=== PATIENT | male | born 1960 | race Hispanic/Latino ===

== ENCOUNTER 2022-09-18 09:20 | Emergency (ER) | payer SELFPAY ==
[2022-09-18 09:53] LABS: Absolute Lymphocytes (CBC) 1.9 K/uL (0.7-4.9); Hematocrit 42.6 % (39.6-49.0); Lymphocytes % 31.7 % (15.3-44.8); MCV 89.3 fL (80-100); MPV 9.7 fL (7.6-11.3); Platelets 135 thou/uL (152-406); RBC Red Blood Cell Count 4.77 M/uL (4.33-5.43)
[2022-09-18] MEDS ORDERED: DIPHENHYDRAMINE 50 MG/ML VIAL ONE (09:56)
[2022-09-18] MEDS ORDERED: NA CHLORIDE 0.9% 1,000 ML ONE (09:57)
[2022-09-18] MEDS ORDERED: KETOROLAC 30 MG/ML INJ ONE (09:57)
[2022-09-18] MEDS ORDERED: METOCLOPRAMIDE 10 MG/2mL INJ ONE (09:58)
[2022-09-18 10:14] LABS: Potassium 3.8 mEq/L (3.5-5.1)
--- NOTE | 2022-09-18 10:19 | RAD REPORT ---
EXAM DESCRIPTION: CT - Head Brain Wo Cont - 09/18/2022 10:08 am CLINICAL HISTORY: Headache COMPARISON: none TECHNIQUE: Computed axial tomography of the head was obtained. Unenhanced and enhanced images obtain ed. 50 cc Isovue-[address] scans are performed using dose optimization technique as appropriate and may include automated exposure control or mA/KV adjustment according to patient size. FINDINGS: An intracranial bleed is not seen The ventricles are normal in caliber No extra-axial fluid collection is noted. No abnormal enhancement seen Fluid within the sinuses/ mastoids is not seen IMPRESSION: No acute intracranial abnormality is seen. If patient's symptoms persist MRI of the brain would be recommended
--- NOTE | 2022-09-18 11:55 | ER ---
Nurse's Notes [facility] Name: Joe Souza Age: 62 yrs Sex: Male : 1960 Arrival Date: 09/18/2022 Time: 09:20 Bed 7 Private MD: Diagnosis: Headache Presentation: 09/18 09:24 Chief complaint: Patient states: symptoms began 2 weeks ago with nausea, heartburn, and aa5 frontal headache. Pt reports heartburn and nausea has resolved but headache has persisted. Pt reports generalized weakness, states "yesterday I felt dizzy, like I was drunk". 09:24 Coronavirus screen: headache. Ebola Screen: Patient denies travel to an Ebola-affected [facility] area in the 21 days before illness onset. Initial Sepsis Screen: Does the patient meet any 2 criteria? No. Patient's initial sepsis screen is negative. Does the patient have a suspected source of infection? No. Patient's initial sepsis screen is negative. Risk Assessment: Do you want to hurt yourself or someone else? Patient reports no desire to harm self or others. Onset of symptoms was September 2022. 09:24 Acuity: CHERRY 3 aa5 09:24 Method Of Arrival: Ambulatory aa5 Historical: - Allergies: 09:24 No Known Allergies; aa5 - Home Meds: 09:24 None [Active]; aa5 - PMHx: 09:24 None; aa5 - PSHx: 09:24 Appendectomy; aa5 - Immunization history:: Adult Immunizations unknown. - Social history:: Smoking status: Patient denies any tobacco usage or history of. Screenin:30 [facility] ED Fall Risk Assessment (Adult) History of falling in the last 3 months, aa5 including since admission No falls in past 3 months (0 pts) Confusion or Disorientation No (0 pts) Intoxicated or Sedated No (0 pts) Impaired Gait No (0 pts) Mobility Assist Device Used No (0 pt) Altered Elimination No (0 pt) Score/Fall Risk Level 0 - 2 = Low Risk Oriented to surroundings, Maintained a safe environment, Educated pt \\T\\ family on fall prevention, incl call for assistance when getting out of bed. Abuse screen: Denies threats or abuse. Nutritional screening: No deficits noted. Tuberculosis screening: No symptoms or risk factors identified. Assessment: 09:24 General: Appears comfortable, Behavior is calm, cooperative. Pain: Complains of pain in aa5 forehead Pain currently is 5 out of 10 on a pain scale. Quality of pain is described as aching, throbbing, Pain began 2 weeks ago Is continuous. Neuro: Level of Consciousness is awake, alert, obeys commands, Oriented to person, place, time, situation, Tone Regulator are equal bilaterally Moves all extremities. Gait is steady, Speech is normal, Facial symmetry appears normal, Pupils are PERRLA, Reports headache frontal area, Currently denies dizziness. Cardiovascular: Heart tones S1 S2 present Rhythm is regular. Respiratory: Airway is patent Respiratory effort is even, unlabored, Respiratory pattern is regular, symmetrical, Breath sounds are clear bilaterally. GI: Abdomen is round non-distended, Bowel sounds present X 4 quads. Abd is soft and non tender X 4 quads. Patient currently denies diarrhea, nausea, vomiting. : No signs and/or symptoms were reported regarding the genitourinary system. EENT: No signs and/or symptoms were reported regarding the EENT system. Derm: Skin is pink, warm \\T\\ dry. Musculoskeletal: Range of motion: intact in all extremities. 10:04 Reassessment: Pt to CT via wheelchair . aa5 10:11 Reassessment: Pt back from CT scan. aa5 10:20 Reassessment: Patient is alert, oriented x 3, equal unlabored respirations, skin aa5 warm/dry/pink. Patient states feeling better. 11:48 Reassessment: Patient is alert, oriented x 3, equal unlabored respirations, skin aa5 warm/dry/pink. Patient denies pain at this time. Patient states feeling better. Patient states symptoms have improved. 12:10 Reassessment: Patient is alert, oriented x 3, equal unlabored respirations, skin aa5 warm/dry/pink. Vital Signs: 09:24 BP 140 / 90; Pulse 91; Resp 17 S; Temp 98.9(O); Pulse Ox 100% on R/A; Weight 68.04 kg aa5 (R); Height 5 ft. 2 in. (R); Pain 5/10; 09:50 BP 133 / 91 Supine; Pulse 81; aa5 09:52 BP 127 / 97 Sitting; Pulse 83; aa5 09:54 BP 131 / 91 Standing; Pulse 93; aa5 10:20 BP 133 / 87; Pulse 78; Resp 16 S; Temp 98.5(TE); Pulse Ox 99% on R/A; aa5 11:48 BP 135 / 90; Pulse 80; Resp 17 S; Pulse Ox 98% on R/A; aa5 09:24 Body Mass Index 27.44 (68.04 kg, 157.48 cm) aa5 09:24 Pain Scale: Adult aa5 Karsten Coma Score: 17:25 Eye Response: spontaneous(4). Motor Response: obeys commands(6). Verbal Response: kb oriented(5). Total: 15. ED Course: 09:23 Patient arrived in ED. mr 09:24 [facility]C [facility] kb 09:24 Asher Olivares MD is Attending Physician. kb 09:24 Arm band placed on. aa5 09:24 Patient has correct armband on for positive identification. Placed in gown. Bed in low aa5 position. Call light in reach. Side rails up X2. Client placed on continuous cardiac and pulse oximetry monitoring. NIBP monitoring applied. 09:26 Paris Armendariz, RN is Primary Nurse. aa5 09:37 Triage completed. aa5 09:48 Basic Metabolic Panel Sent. bc6 09:48 CBC with Diff Sent. bc6 09:48 Troponin HS Sent. bc6 09:48 Inserted saline lock: 20 gauge in right antecubital area, using aseptic technique. bc6 09:57 COVID swab sent to lab. Flu and/or RSV swab sent to lab. aa5 10:10 CT Head Brain wo Cont In Process Unspecified. EDMS 12:10 No provider procedures requiring assistance completed. IV discontinued, intact, aa5 bleeding controlled, No redness/swelling at site. Pressure dressing applied. Administered Medications: 10:01 Drug: NS 0.9% IV 1000 ml Route: IV; Rate: 1000 ml; Site: right antecubital; aa5 11:48 Follow up: IV Status: Completed infusion; IV Intake: 1000ml aa5 10:01 Drug: Ketorolac IVP 15 mg Route: IVP; Site: right antecubital; aa5 10:20 Follow up: Response: No adverse reaction aa5 10:02 Drug: diphenhydrAMINE IVP 12.5 mg Route: IVP; Site: right antecubital; aa5 10:20 Follow up: Response: No adverse reaction aa5 10:02 Drug: metoCLOPramide IVP 10 mg Route: IVP; Site: right antecubital; aa5 10:20 Follow up: Response: No adverse reaction aa5 Medication: 12:10 VIS not applicable for this client. aa5 Intake: 11:48 IV: 1000ml; Total: 1000ml. aa5 Outcome: 11:54 Discharge ordered by MD. lugo 12:10 Discharged to home ambulatory, with friend. aa5 12:10 Condition: improved 12:10 Discharge instructions given to patient, Instructed on discharge instructions, follow up and referral plans. Demonstrated understanding of instructions, follow-up care. 12:18 Patient left the ED. aa5 Signatures: Dispatcher [employer] EDMS Natalie Garibay, [employer] QUALITY CONTROL ENGINEERING TECHNICIAN-Maida Gale mr Armendariz, Paris RN RN aa5 Amanda Christensen bc6 Corrections: (The following items were deleted from the chart) 09:38 09:24 Coronavirus screen: At this time, the client does not indicate any symptoms aa5 associated with coronavirus-19. aa5 09:42 09:24 BP 140 / 90; Pulse 91bpm; Resp 17bpm; Spontaneous; Pulse Ox 100% RA; 68.04 kg aa5 Reported; Height 5 ft. 2 in. Reported; BMI: 27.4; aa5
--- NOTE | 2022-09-18 11:55 | EDPHYS ---
Physician Documentation [facility] Name: Joe Souza Age: 62 yrs Sex: Male : 1960 Arrival Date: 09/18/2022 Time: 09:20 Bed 7 Private MD: ED Physician Asher Olivares HPI: 09/18 17:26 This 62 yrs old Male presents to ER via Ambulatory with complaints of Headache.kb 17:26 The patient complains of pain to the top of head. The patient describes the headache as kb constant. 17:26 Onset: The symptoms/episode began/occurred 2 week(s) ago. Associated signs and kb symptoms: Pertinent positives: dizziness, nausea, weakness. Severity of symptoms: At its worst the pain was mild, moderate, in the emergency department the pain is unchanged. Headache History: Denies prior headaches. The symptoms are alleviated by nothing. the symptoms are aggravated by nothing. The patient has not experienced similar symptoms in the past. The patient has not recently seen a physician. Historical: - Allergies: 09:24 No Known Allergies; aa5 - Home Meds: 09:24 None [Active]; aa5 - PMHx: 09:24 None; aa5 - PSHx: 09:24 Appendectomy; aa5 - Immunization history:: Adult Immunizations unknown. - Social history:: Smoking status: Patient denies any tobacco usage or history of. ROS: 17:27 Constitutional: Negative for fever, chills, and weight loss. kb 17:27 Abdomen/GI: Positive for nausea, acid reflux. 17:27 Neuro: Positive for dizziness, headache. 17:27 All other systems are negative. Exam: 17:27 Constitutional: This is a well developed, well nourished patient who is awake, alert, kb and in no acute distress. Head/Face: Normocephalic, atraumatic. ENT: Moist Mucous membranes Cardiovascular: Regular rate and rhythm with a normal S1 and S2. No gallops, murmurs, or rubs. No pulse deficits. Respiratory: Respirations even and unlabored. No increased work of breathing. Talking in full sentences Abdomen/GI: Soft, non-tender. No distention Skin: Warm, dry with normal turgor. Normal color. MS/ Extremity: Pulses equal, no cyanosis. Neurovascular intact. Full, normal range of motion. Neuro: Awake and alert, GCS 15, oriented to person, place, time, and situation. Moves all extremities. Normal gait. Vital Signs: 09:24 BP 140 / 90; Pulse 91; Resp 17 S; Temp 98.9(O); Pulse Ox 100% on R/A; Weight 68.04 kg aa5 (R); Height 5 ft. 2 in. (R); Pain 5/10; 09:50 BP 133 / 91 Supine; Pulse 81; aa5 09:52 BP 127 / 97 Sitting; Pulse 83; aa5 09:54 BP 131 / 91 Standing; Pulse 93; aa5 10:20 BP 133 / 87; Pulse 78; Resp 16 S; Temp 98.5(TE); Pulse Ox 99% on R/A; aa5 11:48 BP 135 / 90; Pulse 80; Resp 17 S; Pulse Ox 98% on R/A; aa5 09:24 Body Mass Index 27.44 (68.04 kg, 157.48 cm) aa5 09:24 Pain Scale: Adult aa5 Karsten Coma Score: 17:25 Eye Response: spontaneous(4). Motor Response: obeys commands(6). Verbal Response: kb oriented(5). Total: 15. MDM: 09:24 Patient medically screened. kb 17:25 Differential diagnosis: cerebral vascular accident, migraine, dehydration, heat kb exposure. Data reviewed: vital signs, nurses notes. Counseling: I had a detailed discussion with the patient and/or guardian regarding: the historical points, exam findings, and any diagnostic results supporting the discharge/admit diagnosis, lab results, radiology results, the need for outpatient follow up, a family practitioner, to return to the emergency department if symptoms worsen or persist or if there are any questions or concerns that arise at home. Response to treatment: the patient's symptoms have resolved after treatment. 09/18 09:35 Order name: Basic Metabolic Panel; Complete Time: 10:16 kb 09/18 09:35 Order name: CBC with Diff; Complete Time: 10:08 kb 09/18 09:35 Order name: Troponin HS; Complete Time: 10:16 kb 09/18 09:35 Order name: CPK; Complete Time: 10:16 kb 09/18 09:45 Order name: Flu; Complete Time: 11:04 kb 09/18 09:45 Order name: COVID-19 SARS RT PCR; Complete Time: 10:57 kb 09/18 09:44 Order name: CT Head Brain wo Cont; Complete Time: 10:20 kb 09/18 09:35 Order name: EKG; Complete Time: 09:36 kb 09/18 09:35 Order name: EKG - Nurse/Tech; Complete Time: 09:39 kb 09/18 09:35 Order name: IV Saline Lock; Complete Time: 09:48 kb 09/18 09:35 Order name: Labs collected and sent; Complete Time: 09:48 kb 09/18 09:35 Order name: O2 Per Protocol; Complete Time: 09:39 kb 09/18 09:35 Order name: O2 Sat Monitoring; Complete Time: 09:39 kb 09/18 09:44 Order name: Orthostatics; Complete Time: 10:01 kb Administered Medications: 10:01 Drug: NS 0.9% IV 1000 ml Route: IV; Rate: 1000 ml; Site: right antecubital; aa5 11:48 Follow up: IV Status: Completed infusion; IV Intake: 1000ml aa5 10:01 Drug: Ketorolac IVP 15 mg Route: IVP; Site: right antecubital; aa5 10:20 Follow up: Response: No adverse reaction aa5 10:02 Drug: diphenhydrAMINE IVP 12.5 mg Route: IVP; Site: right antecubital; aa5 10:20 Follow up: Response: No adverse reaction aa5 10:02 Drug: metoCLOPramide IVP 10 mg Route: IVP; Site: right antecubital; aa5 10:20 Follow up: Response: No adverse reaction aa5 Disposition Summary: 09/18/22 11:54 Discharge Ordered Location: Home kb Condition: Stable kb Diagnosis - Headache kb Followup: kb - With: Emergency Department - When: As needed - Reason: Worsening of condition Followup: kb - With: Private Physician - When: 2 - 3 days - Reason: Recheck today's complaints, Continuance of care, Re-evaluation by your physician Discharge Instructions: - Discharge Summary Sheet kb - General Headache Without Cause, [id number] kb Forms: - Medication Reconciliation Form kb - Thank You Letter kb - Antibiotic Education kb - Prescription Opioid Use kb - Patient Portal Instructions kb - Leadership Thank You Letter kb Signatures: Dispatcher [employer] EDNatalie Thomas ART MANAGER-C ART MANAGER-Ckb Pairs Armendariz, RN RN aa5
[2022-09-18 12:27] VITALS: TEMP 98.9; O2SAT 100
[2022-09-18 12:43] VITALS: BP 131/91
--- NOTE | 2022-09-19 13:12 | EKG ---
Test Date: 2022-09-18 Test Time: 09:35:26 [employer]: GURMEET MEASUREMENT RESULTS: Intervals: Rate: 85 FL: 160 QRSD: 86 QT: 342 QTc: 406 [place]: P: 0 FL: 160 QRS: 39 T: 25 INTERPRETIVE STATEMENTS: Normal sinus rhythm Normal ECG No previous ECG available for comparison Electronically Signed On 09-19-22 13:10:01 CDT by David Herrera
== END 2022-09-18 12:18 | disposition home or self-care (01) ==
LOC: ER 09:20
DX: R51.9 Headache, unspecified (principal)
CPT/HCPCS: 36415; 70450; 80048; 82550; 84484; 85025; 87635; 87804; 93005; 96361; 96374; 96375; 99284; J1200; J2765; J7030